=== PATIENT | female | born 1950 | race Caucasian/White ===

== ENCOUNTER 2021-03-07 23:26 | Emergency (ER) | payer MEDICARE ==
--- NOTE | 2021-03-08 00:35 | EDM.PDOC ---
ED HPI GENERAL MEDICAL PROBLEM - General Chief Complaint: Respiratory Problem Stated Complaint: SHORTNESS OF BREATH Time Seen by Provider: 03/08/21 00:26 Source of Information: Reports: Patient, Family, RN Notes Reviewed History Limitations: Reports: No Limitations - History of Present Illness INITIAL COMMENTS - FREE TEXT/NARRATIVE: 70-year-old female presents to the emergency department today with complaint of shortness of breath she has a known history of renal transplant states about 10:00 today became very short of breath had some chest pain however now that has resolved and she feels her breathing is back to normal no nausea no vomiting no diaphoresis Right Chest Pain Score (Numeric/FACES): 3 - Related Data Allergies Allergy/AdvReac Type Severity Reaction Status Date / Time azathioprine Allergy Other Verified 03/08/21 00:10 ciprofloxacin Allergy Other Verified 03/08/21 00:10 hydralazine Allergy Other Verified 03/08/21 00:10 levofloxacin [From Levaquin] Allergy Other Verified 03/08/21 00:10 Quinolones Allergy Other Verified 03/08/21 00:10 rosuvastatin [From Crestor] Allergy Other Verified 03/08/21 00:10 tree nut Allergy Anaphylactic Verified 03/08/21 00:10 Shock Home Meds: Home Meds Acetaminophen [Tylenol] 2 tab PO Q6H 03/08/21 [History] Aspirin [Ecotrin EC] 1 tab PO DAILY 03/08/21 [History] Calcium Carbonate/Vitamin D3 [Caltrate 600 Plus D3 Tablet] 1 tab PO DAILY 03/08/21 [History] Cholecalciferol (Vitamin D3) [Vitamin D3] 2 cap PO WEEKLY 03/08/21 [History] Cyanocobalamin (Vitamin B12) [Vitamin B12] 1 tab PO WEEKLY 03/08/21 [History] Magnesium Oxide 1 tab PO BID 03/08/21 [History] Metoprolol Succinate [Toprol XL] 1 tab PO BID 03/08/21 [History] Omeprazole 1 cap PO DAILY 03/08/21 [History] Rosuvastatin [Crestor] 1 tab PO DAILY 03/08/21 [History] Tacrolimus [Prograf] 1 tab PO BID 03/08/21 [History] amLODIPine Besylate [Norvasc] 1 tab PO DAILY 03/08/21 [History] metFORMIN [Glucophage] 1 tab PO BID 03/08/21 [History] predniSONE [Prednisone] 1 tab PO ASDIRECTED 03/08/21 [History] Past Medical History HEENT History: Reports: Impaired Vision Respiratory History: Reports: Sleep Apnea Gastrointestinal History: Reports: Other (See Below) Other Gastrointestinal History: Crohns Genitourinary History: Reports: Dialysis, Other (See Below) Other Genitourinary History: kidney transplant 11/22/13 [employer] History: Reports: Endocrine/Metabolic History: Reports: Diabetes, Type II, Hyperparathyroidism Hematologic History: Reports: Blood Transfusion(s) - Infectious Disease History Infectious Disease History: Reports: Chicken Pox, Measles - Past Surgical History HEENT Surgical History: Reports: Tonsillectomy Endocrine Surgical History: Reports: Parathyroidectomy Social & Family History - Tobacco Use Tobacco Use Status *Q: Never Tobacco User Second Hand Smoke Exposure: Yes - Caffeine Use Caffeine Use: Reports: Coffee, Soda - Recreational Drug Use Recreational Drug Use: No ED ROS GENERAL - Review of Systems Review Of Systems: See Below Constitutional: Denies: Fever, Chills HEENT: Reports: No Symptoms Respiratory: Reports: Shortness of Breath. Denies: Wheezing, Cough, Sputum Cardiovascular: Reports: Chest Pain GI/Abdominal: Reports: No Symptoms : Reports: No Symptoms ED EXAM, GENERAL - Physical Exam Exam: See Below Exam Limited By: No Limitations General Appearance: Alert, WD/WN, No Apparent Distress Respiratory/Chest: No Respiratory Distress, Lungs Clear, Normal Breath Sounds, No Accessory Muscle Use, Chest Non-Tender Cardiovascular: Regular Rate, Rhythm, No Murmur GI/Abdominal: Soft, Non-Tender #1 Interpretation EKG Date: 03/08/21 Time: 01:34 Rhythm: NSR [place]: Normal P-Wave: Present QRS: Normal ST-T: Normal QT: Normal Comparison: NA - No Prior EKG Course - Vital Signs Last Recorded V/S: Last Vital Signs Temp 97.7 F 03/07/21 23:54 Pulse 75 03/07/21 23:54 Resp 75 H 03/07/21 23:54 BP 163/77 H 03/07/21 23:54 Pulse Ox 90 L 03/07/21 23:54 - Orders/Labs/Meds Orders: Active Orders 24 hr Category Date Time Status Cardiac Monitoring [RC] .As Directed Care 03/08/21 00:31 Active EKG Documentation Completion [RC] ASDIRECTED Care 03/08/21 00:32 Active Chest 1V Frontal [CR] Stat Exams 03/08/21 00:31 Taken EKG 12 Lead [EK] Stat Ther 03/08/21 00:31 Ordered Labs: Laboratory Tests 03/08/21 03/08/21 03/08/21 Range/Units 00:40 00:40 00:40 WBC 7.6 (4.5-11.0) K/uL RBC 4.26 (3.30-5.50) M/uL Hgb 11.0 L (12.0-15.0) g/dL Hct 34.9 L (36.0-48.0) % MCV 82 (80-98) fL MCH 26 L (27-31) pg MCHC 32 (32-36) % Plt Count 245 (150-400) K/uL Neut % (Auto) 64.2 (36-66) % Lymph % (Auto) 21.6 L (24-44) % Howard % (Auto) 8.8 H (2-6) % Eos % (Auto) 4.7 H (2-4) % Baso % (Auto) 0.7 (0-1) % Sodium 143 (140-148) mmol/L Potassium 3.8 (3.6-5.2) mmol/L Chloride 103 (100-108) mmol/L Carbon Dioxide 29 (21-32) mmol/L Anion Gap 11.1 (5.0-14.0) mmol/L BUN 22 H (7-18) mg/dL Creatinine 1.1 H (0.6-1.0) mg/dL Est Cr Clr Drug Dosing 38.18 mL/min Estimated GFR (MDRD) 49 L (>60) Glucose 112 H (74-106) mg/dL Lactic Acid 1.0 (0.4-2.0) mmol/L Calcium 8.8 (8.5-10.1) mg/dL Total Bilirubin 0.3 (0.2-1.0) mg/dL AST 25 (15-37) U/L ALT 40 (12-78) U/L Alkaline Phosphatase 74 (46-116) U/L Troponin I < 0.017 (0.000-0.056) ng/mL Total Protein 7.3 (6.4-8.2) g/dL Albumin 3.7 (3.4-5.0) g/dL Globulin 3.6 H (2.3-3.5) g/dL Albumin/Globulin Ratio 1.0 L (1.2-2.2) Departure - Departure Time of Disposition: 02:30 Disposition: Home, Self-Care 01 Condition: Fair Clinical Impression: Atypical chest pain - Discharge Information Instructions: Nonspecific Chest Pain, Adult Referrals: PCP,None [Primary Care Provider] - Forms: ED Department Discharge Additional Instructions: Continue with your regular medications, please follow-up with your primary care upon return home call or return to the emergency department worsening of symptoms Sepsis Event Note (ED) - Evaluation Sepsis Screening Result: No Definite Risk - Focused Exam Vital Signs: Vital Signs Temp Pulse Resp BP Pulse Ox 03/07/21 23:54 97.7 F 75 75 H 163/77 H 90 L 03/07/21 23:51 97.7 F 75 75 H 163/77 H 90 L - My Orders Last 24 Hours: My Active Orders 03/08/21 00:31 Cardiac Monitoring [RC] .As Directed Chest 1V Frontal [CR] Stat EKG 12 Lead [EK] Stat 03/08/21 00:32 EKG Documentation Completion [RC] ASDIRECTED - Assessment/Plan Last 24 Hours: My Active Orders 03/08/21 00:31 Cardiac Monitoring [RC] .As Directed Chest 1V Frontal [CR] Stat EKG 12 Lead [EK] Stat 03/08/21 00:32 EKG Documentation Completion [RC] ASDIRECTED Plan: Assessment Acuity = acute Site and laterality = atypical chest pain Etiology = unknown Manifestations = none Location of injury = Home Lab values = CBC unremarkable creatinine elevated 1.1 consistent with chronic renal failure stage G3 a troponin was negative remainder of blood work is unremarkable EKG shows no ST elevations or depression chest x-ray I did review films myself I cannot appreciate any acute process, the official read from radiology is pending Plan I did offer her further observation in the emergency department recheck blood work in a couple hours she declined at this time would prefer to go home will come back if any development of new symptoms otherwise will follow up with her primary care upon return home This note was dictated using [employer] voice recognition software please call with any questions on syntax or grammar.
--- NOTE | 2021-03-10 10:03 | CR ---
CHEST: Portable 03/08/2021 at 1:15 AM CLINICAL HISTORY:Chest pain COMPARISON:None FINDINGS: The heart size, pulmonary vascularity and hilar structures are normal. No infiltrate effusion or pneumothorax is seen. There is some patchy density in the left infrahilar region which is likely atelectasis. IMPRESSION: No acute cardiopulmonary process. Probable patchy atelectasis in the left infrahilar region. Two-view chest recommended when patient's condition allows
== END 2021-03-08 02:52 | disposition home or self-care (01) ==
LOC: JP.ED 23:26
DX: R07.89 Other chest pain (principal); E11.9 Type 2 diabetes mellitus without complications; Z79.82 Long term (current) use of aspirin; Z79.899 Other long term (current) drug therapy; Z77.22 Contact with and (suspected) exposure to environmental tobacco smoke (acute) (chronic); Z79.84 Long term (current) use of oral hypoglycemic drugs; Z88.8 Allergy status to other drugs, medicaments and biological substances; Z88.1 Allergy status to other antibiotic agents; Z91.018 Allergy to other foods
CPT/HCPCS: 36415; 71045; 71045-26; 80053; 83605; 84484; 85025; 93005; 99284; 99285-25